=== PATIENT | male | born 1970 | race African-American/Black ===

== ENCOUNTER 2017-06-23 06:50 | Emergency (ER) | payer SELFPAY ==
[~2017-06-23] VITALS: Ht 175.3 cm; Wt 101.6 kg
[2017-06-23 07:20] VITALS: BP 167/112
[2017-06-23] MEDS ORDERED: KETOROLAC TROMETH 60MG/2ML VIAL IM ONE (07:30)
[2017-06-23] MEDS ORDERED: cloNIDine HCL 0.1 MG TAB PO ONE (07:30)
== END 2017-06-23 08:32 | disposition home or self-care (01) ==
LOC: ER 06:50
DX: I10 Essential (primary) hypertension (principal); F17.200 Nicotine dependence, unspecified, uncomplicated
CPT/HCPCS: 96372; 99283; J1885